=== PATIENT | female | born 1965 | race Caucasian/White ===

== ENCOUNTER 2017-09-11 09:39 | Emergency (ER) | payer BC ==
[2017-09-11] MEDS: diazePAM 5 MG TABLET PO (10:21)
[2017-09-11] MEDS: MORPHINE SULFATE 4 MG/ML DISP.SYRIN. IV (10:31)
[2017-09-11 11:17] LABS: BASO % 0 % (0-3); EOS % 0 % (0-3); HEMATOCRIT 38.6 % (36.0-47.0); HEMOGLOBIN 13.5 g/dL (12.0-15.5); LYMPH # 0.5 x10^3/uL (1.0-4.8); LYMPH % 4 % (24-48); MEAN CORPUSCULAR HEMOGLOBIN 32 pg (25-35); MEAN CORPUSCULAR HGB CONC 35 g/dL (31-37); MEAN CORPUSCULAR VOLUME 91 fL (79-100); MONO # 1.2 x10^3/uL (0.0-1.1); MONO % 10 % (0-9); NEUT # 11.3 x10^3uL (1.8-7.7); NEUT % 87 % (31-73); PLATELET COUNT 344 x10^3/uL (140-400); RED BLOOD COUNT 4.24 x10^6/uL (3.50-5.40); RED CELL DISTRIBUTION WIDTH 12.4 % (11.5-14.5); WHITE BLOOD COUNT 13.1 x10^3/uL (4.0-11.0)
[2017-09-11 11:20] LABS: ADD MAN DIFF? YES
[2017-09-11 11:33] LABS: ANION GAP 8 (6-14); BLOOD UREA NITROGEN 9 mg/dL (7-20); C-REACTIVE PROTEIN 197.5 mg/L (0-3.3); CALCIUM 9.5 mg/dL (8.5-10.1); CARBON DIOXIDE 30 mmol/L (21-32); CHLORIDE 90 mmol/L (98-107); CREATININE 0.8 mg/dL (0.6-1.0); GFR 74.7; GLUCOSE 152 mg/dL (70-99); SODIUM 128 mmol/L (136-145)
[2017-09-11 11:35] LABS: POTASSIUM 1.9 mmol/L (3.5-5.1)
[2017-09-11] MEDS: GADOBUTROL 7.5 MMOL/7.5 ML VIAL IV (11:45)
[2017-09-11] MEDS: POTASSIUM CHLORIDE 20 MEQ/15 ML ORAL LIQUID. PO ×2 (12:09→13:18)
[2017-09-11 12:20] LABS: MAGNESIUM 1.8 mg/dL (1.8-2.4)
[2017-09-11 12:23] LABS: SEDIMENTATION RATE 83 (0-25)
[2017-09-11 12:32] LABS: % BANDS 21 % (0-9); % EOS 1 % (0-5); % LYMPHS 4 % (24-48); % MONOS 6 % (0-10); % SEGS 68 % (35-66); PLT ESTIMATE ADEQUATE (ADEQUATE)
[2017-09-11] MEDS ORDERED: VANCOMYCIN 1GM IVPB FOR OMNI 250 ML IV (13:00)
[2017-09-11] MEDS: ONDANSETRON PF 4 MG/2 ML VIAL. IV (13:18)
[2017-09-11] MEDS: MORPHINE SULFATE 10 MG/ML VIAL. IV (13:19)
[2017-09-11 13:21] LABS: LACTIC ACID 1.4 mmol/L (0.4-2.0)
[2017-09-11] MEDS: cefTRIAXone SODIUM 2 GM in IV DEXTROSE 5% 100ML 100 ML IV (14:10)
[2017-09-11] MEDS: fentaNYL PF VIAL 100 MCG/2 ML VIAL IV ×2 (14:12→15:05)
== END 2017-09-11 15:18 | disposition short-term general hospital (02) ==
LOC: ER 09:39
DX: M48.56XA Collapsed vertebra, not elsewhere classified, lumbar region, initial encounter for fracture (principal); M25.559 Pain in unspecified hip; M79.606 Pain in leg, unspecified; F41.9 Anxiety disorder, unspecified; F32.9 Major depressive disorder, single episode, unspecified; I10 Essential (primary) hypertension
CPT/HCPCS: 36415; 72158; 80048; 83605; 83735; 85007; 85025; 85651; 86140; 87040; 93005; 96365; 96367; 96375; 96376; 99285; A9585; J0696; J2270; J2405; J3010; J3490